=== PATIENT | female | born 1975 | race Caucasian/White ===

== ENCOUNTER → 2024-10-05 | Outpatient (CLI) | payer MEDICAID, SELFPAY ==
--- NOTE | 2024-10-05 15:45 | XR_ITS ---
Examination: Thyroid sonography complete Technique: Grayscale sonographic images thyroid lobes with color flow analysis Exam date and time: October 05, 2024 1506 hrs. Indications: Diagnosis nontoxic multinodular goiter Findings: Right thyroid 5.1 cm 13 mm upper pole cyst Lower pole nodule 15 x 13 mm, lower pole cyst 11 x 13 mm Left thyroid 4.7 cm Upper pole nodule 11 x 9 mm Midpole nodule 8 x 6 mm Lower pole nodule 5 x 3 mm Impression: Multiple thyroid nodules as above, the largest measured as above
== END | disposition home or self-care (01) ==
PROVIDERS: PCP Physician Assistant; Referring Provider Nurse Practitioner Family; Visit Provider Nurse Practitioner Family
DX: E04.2 Nontoxic multinodular goiter (principal)
CPT/HCPCS: 76536